=== PATIENT | female | born 1945 | race Caucasian/White ===

== ENCOUNTER 2017-04-22 21:42 | Inpatient (IN) | payer MEDICARE, OTHER ==
[~2017-04-22] VITALS: Ht 170.2 cm; Wt 76.4 kg
[2017-04-22 22:39] LABS: BASO # 0.1 (0.0-0.2); BASO % 0.5 % (0.0-2.0); EOS # 0.1 (0.0-0.7); EOS % 0.8 % (0-4.0); GRAN # 9.3 (1.4-6.5); GRAN % 89.4 % (42.2-75.2); LYMPH # 0.4 (1.2-3.4); LYMPH % 3.4 % (20.0-51.0); MEAN CELL VOLUME 95 fl (80.0-100.0); MEAN CORPUSCULAR HEMOGLOBIN 31 pg (27.0-31.0); MEAN CORPUSCULAR HGB CONC 33 g/dl (33.0-37.0); MEAN PLATELET VOLUME 10.6 fl (7.4-10.4); MONO # 0.6 (0.1-0.6); MONO % 5.4 % (1.7-9.3); PLATELET COUNT 142 K/mm3 (130-400); RED BLOOD COUNT 3.85 M/mm3 (4.10-5.30); REDCELL DISTRIBUTION WIDTH-CV 13.6 % (11.5-14.5); WHITE BLOOD COUNT 10.3 K/mm3 (4.8-10.8)
[2017-04-22 22:40] LABS: HEMATOCRIT 36.7 % (37.0-47.0)
[2017-04-22 22:49] LABS: ADJUSTED CALCIUM 8.9 mg/dL (8.4-10.2); ALBUMIN 4.5 gm/dL (3.5-5.0); BILIRUBIN,TOTAL 1.4 mg/dL (0.0-1.0); CALCIUM 9.3 mg/dL (8.4-10.2); CREATININE, serum 1.81 mg/dL (0.52-1.25); POTASSIUM 4.5 mmol/L (3.4-5.0); TOTAL PROTEIN 7.1 gm/dL (6.4-8.2)
[2017-04-22] MEDS ORDERED: LEXAPRO 10MG10 MG PO (23:19)
[2017-04-22] MEDS ORDERED: XANAX 0.5MG0.5 MG PO (23:19)
[2017-04-22] MEDS ORDERED: APRESOLINE 25MG25 MG PO (23:20)
[2017-04-22] MEDS ORDERED: PLAVIX 75MG TAB75 MG PO (23:20)
[2017-04-22] MEDS ORDERED: DIABETA 5MG5 MG/TAB PO (23:21)
[2017-04-22] MEDS ORDERED: INDERAL60 MG PO (23:32)
[2017-04-22] MEDS ORDERED: KLONOPIN 0.5MG0.5 MG PO (23:33)
[2017-04-22] MEDS ORDERED: LIPITOR 40MG TA40 MG PO (23:33)
[2017-04-22] MEDS ORDERED: LEVOXYL0.15 MG PO (23:33)
[2017-04-22] MEDS ORDERED: MYSOLINE 5050 MG/TAB PO (23:34)
[2017-04-22] MEDS ORDERED: ASPIRIN 81M81 MG/TA2 PO (23:34)
[2017-04-22] MEDS ORDERED: NATURE'S BLE1000 MCG (23:35)
[2017-04-22] MEDS ORDERED: CALCIUM CARBON650 M2 (23:35)
[2017-04-22] MEDS ORDERED: LANTUS100 U/ML SQ (23:36)
[2017-04-22] MEDS ORDERED: SINEMET 25/101 UDTAB PO (23:41)
[2017-04-22 23:51] LABS: PH 5 (5-8); SQUAMOUS EPITHELIAL 0-2 /hpf; URINE APPEARANCE Clear; URINE BACTERIA Rare /hpf; URINE BILIRUBIN Negative (NEGATIVE); URINE BLOOD 2+ (NEGATIVE); URINE COLOR Yellow; URINE GLUCOSE Negative (NEGATIVE); URINE KETONE Negative (NEGATIVE); URINE UROBILINOGEN Negative (NEGATIVE)
[2017-04-23] VITALS (8 sets, daily range): BP systolic 91–148; BP diastolic 38–67; PULSE 74–104; TEMP 98.4–102.2
[2017-04-23 07:30] LABS: MEAN CELL VOLUME 97 fl (80.0-100.0); MEAN CORPUSCULAR HGB CONC 33 g/dl (33.0-37.0); MEAN PLATELET VOLUME 11.2 fl (7.4-10.4); PLATELET COUNT 122 K/mm3 (130-400); RED BLOOD COUNT 3.21 M/mm3 (4.10-5.30); REDCELL DISTRIBUTION WIDTH-CV 13.7 % (11.5-14.5)
[2017-04-23 07:31] LABS: ADD PATHOLOGY DIFF REVIEW NO; HEMATOCRIT 31.1 % (37.0-47.0); HEMOGLOBIN 10.1 g/dl (12.5-16.0); MEAN CORPUSCULAR HEMOGLOBIN 31 pg (27.0-31.0)
[2017-04-23 07:39] LABS: ADJUSTED CALCIUM 8.7 mg/dL (8.4-10.2); ALBUMIN 3.1 gm/dL (3.5-5.0); BILIRUBIN,TOTAL 1.5 mg/dL (0.0-1.0); CREATININE, serum 1.87 mg/dL (0.52-1.25); POTASSIUM 4.5 mmol/L (3.4-5.0); TOTAL PROTEIN 5.5 gm/dL (6.4-8.2)
[2017-04-23 08:37] LABS: BAND 23 % (0-10); BASOPHIL 1 % (0-2); METAMYELOCYTE 1 % (0-0); NEUTROPHILS 70 % (42.0-75.2); OVALOCYTES 1+; TOTAL CELLS COUNTED 100
[2017-04-24] VITALS (8 sets, daily range): BP systolic 77–161; BP diastolic 43–95; PULSE 77–193; TEMP 97.3–102.8
[2017-04-24 17:05] LABS: ADD PATHOLOGY DIFF REVIEW NO
[2017-04-24 17:09] LABS: MEAN CELL VOLUME 99 fl (80.0-100.0); MEAN CORPUSCULAR HGB CONC 32 g/dl (33.0-37.0); MEAN PLATELET VOLUME 10.6 fl (7.4-10.4); PLATELET COUNT 85 K/mm3 (130-400); RED BLOOD COUNT 2.81 M/mm3 (4.10-5.30); REDCELL DISTRIBUTION WIDTH-CV 14.2 % (11.5-14.5); WHITE BLOOD COUNT 5.4 K/mm3 (4.8-10.8)
[2017-04-24 17:11] LABS: HEMATOCRIT 27.8 % (37.0-47.0); MEAN CORPUSCULAR HEMOGLOBIN 32 pg (27.0-31.0)
[2017-04-24 17:18] LABS: ADJUSTED CALCIUM 8.6 mg/dL (8.4-10.2); ALBUMIN 2.7 gm/dL (3.5-5.0); BILIRUBIN,TOTAL 1.3 mg/dL (0.0-1.0); CALCIUM 7.6 mg/dL (8.4-10.2); CREATININE, serum 1.89 mg/dL (0.52-1.25); POTASSIUM 3.9 mmol/L (3.4-5.0); TOTAL PROTEIN 5.4 gm/dL (6.4-8.2)
[2017-04-24 17:53] LABS: BAND 10 % (0-10); EOSINOPHIL 1 % (0-4); NEUTROPHILS 77 % (42.0-75.2); TOTAL CELLS COUNTED 100
[2017-04-24 17:54] LABS: MICROCYTOSIS 1+; PLATELET ESTIMATE NORMAL (NORMAL)
[2017-04-25] VITALS (7 sets, daily range): BP systolic 120–166; BP diastolic 50–72; PULSE 75–94; TEMP 97.8–99.6
[2017-04-25 09:02] LABS: MEAN CELL VOLUME 100 fl (80.0-100.0); MEAN CORPUSCULAR HGB CONC 32 g/dl (33.0-37.0); MEAN PLATELET VOLUME 10.8 fl (7.4-10.4); PLATELET COUNT 101 K/mm3 (130-400); RED BLOOD COUNT 3.12 M/mm3 (4.10-5.30); REDCELL DISTRIBUTION WIDTH-CV 14.3 % (11.5-14.5); WHITE BLOOD COUNT 4.3 K/mm3 (4.8-10.8)
[2017-04-25 09:03] LABS: HEMATOCRIT 31.1 % (37.0-47.0); HEMOGLOBIN 9.8 g/dl (12.5-16.0); MEAN CORPUSCULAR HEMOGLOBIN 31 pg (27.0-31.0)
[2017-04-25 09:11] LABS: CALCIUM 8.1 mg/dL (8.4-10.2); CREATININE, serum 1.75 mg/dL (0.52-1.25); POTASSIUM 3.8 mmol/L (3.4-5.0)
[2017-04-25 09:40] LABS: BAND 31 % (0-10); BASOPHIL 1 % (0-2); EOSINOPHIL 6 % (0-4); METAMYELOCYTE 1 % (0-0); NEUTROPHILS 49 % (42.0-75.2); PLATELET ESTIMATE DECREASED (NORMAL); TOTAL CELLS COUNTED 100
[2017-04-25 09:42] LABS: HYPOCHROMIA 2+
[2017-04-25 09:47] LABS: ADD PATHOLOGY DIFF REVIEW YES
[2017-04-26 04:38] VITALS: BP 150/59; PULSE 75; TEMP 99
[2017-04-26 07:02] LABS: BASO % 0.4 % (0.0-2.0); EOS # 0.2 (0.0-0.7); GRAN # 3.8 (1.4-6.5); GRAN % 75.4 % (42.2-75.2); LYMPH # 0.7 (1.2-3.4); LYMPH % 13.2 % (20.0-51.0); MEAN CELL VOLUME 98 fl (80.0-100.0); MEAN CORPUSCULAR HGB CONC 32 g/dl (33.0-37.0); MEAN PLATELET VOLUME 11.3 fl (7.4-10.4); MONO # 0.4 (0.1-0.6); PLATELET COUNT 145 K/mm3 (130-400); RED BLOOD COUNT 3.33 M/mm3 (4.10-5.30)
[2017-04-26 07:05] LABS: HEMATOCRIT 32.5 % (37.0-47.0); HEMOGLOBIN 10.4 g/dl (12.5-16.0); MEAN CORPUSCULAR HEMOGLOBIN 31 pg (27.0-31.0)
[2017-04-26 07:17] LABS: CALCIUM 8.9 mg/dL (8.4-10.2); CREATININE, serum 1.87 mg/dL (0.52-1.25); POTASSIUM 3.4 mmol/L (3.4-5.0)
[2017-04-26 08:31] LABS: PATHOLOGY DIFF REVIEW OK
[2017-04-26 08:42] VITALS: BP 158/68; PULSE 85; TEMP 98.6
[2017-04-26 12:07] VITALS: BP 141/63; PULSE 73; TEMP 98.3
[2017-04-26 16:08] VITALS: BP 149/55; PULSE 74; TEMP 98.7
[2017-04-26 20:24] VITALS: BP 147/59; PULSE 82; TEMP 99.2
[2017-04-27] VITALS (7 sets, daily range): BP systolic 110–148; BP diastolic 41–71; PULSE 68–75; TEMP 97.9–98.8
[2017-04-27 06:49] LABS: CALCIUM 8.9 mg/dL (8.4-10.2); CREATININE, serum 1.92 mg/dL (0.52-1.25)
[2017-04-28 03:41] VITALS: BP 124/61; PULSE 72; TEMP 98.6
[2017-04-28 06:26] LABS: CALCIUM 8.7 mg/dL (8.4-10.2); CREATININE, serum 2.1 mg/dL (0.52-1.25); MAGNESIUM 1.6 mg/dL (1.6-2.3); POTASSIUM 3.1 mmol/L (3.4-5.0)
[2017-04-28 08:09] VITALS: BP 130/56; PULSE 72; TEMP 98
[2017-04-28 11:20] VITALS: BP 132/51; PULSE 66; TEMP 97.6
[2017-04-28 15:14] VITALS: BP 118/62; PULSE 73; TEMP 97.5
[2017-04-28 20:49] VITALS: BP 147/53; PULSE 76; TEMP 98.8
[2017-04-29 00:19] VITALS: BP 133/47; PULSE 72; TEMP 98.4
[2017-04-29 03:19] VITALS: BP 120/44; PULSE 66; TEMP 98.5
[2017-04-29 07:13] LABS: CALCIUM 8.9 mg/dL (8.4-10.2); CREATININE, serum 2.06 mg/dL (0.52-1.25); MAGNESIUM 2.1 mg/dL (1.6-2.3); POTASSIUM 3.5 mmol/L (3.4-5.0)
[2017-04-29 08:13] VITALS: BP 124/48; PULSE 77; TEMP 97.1
[2017-04-29] MEDS ORDERED: LASIX 20MG TABL20 MG PO (09:58)
[2017-04-29] MEDS ORDERED: PROAIR HFA0.09 MG/AC IH (09:58)
[2017-04-29] MEDS ORDERED: K-DUR 10 MEQ T10 MEQ PO (09:59)
[2017-04-29] MEDS ORDERED: XARELTO10 MG PO (09:59)
[2017-04-29] MEDS ORDERED: AMOXICILLIN/CLA1 TA1 PO (10:00)
== END 2017-04-29 12:21 | disposition home or self-care (01) | DRG 871 ==
LOC: COL.ER 21:42 → EDBD 22:04 → MEDICAL 04-23 02:43
PROVIDERS: Emergency Medicine; Internal Medicine Cardiovascular Disease; Nurse Practitioner Family; Physician Assistant
DX: A40.1 Sepsis due to streptococcus, group B (principal); J96.01 Acute respiratory failure with hypoxia; L03.115 Cellulitis of right lower limb; E87.1 Hypo-osmolality and hyponatremia; N39.0 Urinary tract infection, site not specified; B95.1 Streptococcus, group B, as the cause of diseases classified elsewhere; E87.6 Hypokalemia; G20 Parkinson's disease; J44.9 Chronic obstructive pulmonary disease, unspecified; I25.10 Atherosclerotic heart disease of native coronary artery without angina pectoris; I12.9 Hypertensive chronic kidney disease with stage 1 through stage 4 chronic kidney disease, or unspecified chronic kidney disease; E11.22 Type 2 diabetes mellitus with diabetic chronic kidney disease; N18.9 Chronic kidney disease, unspecified; Z95.1 Presence of aortocoronary bypass graft; Z85.3 Personal history of malignant neoplasm of breast; Z79.4 Long term (current) use of insulin
CPT/HCPCS: 99223-AI; 99232-AI; 99233-AI; 99239; A9284; J0456; J0696; J1644; J1815; J1940; J2405; J2543; J3475; J7030; J7050